=== PATIENT | male | born 1990 | race Asian ===

== ENCOUNTER 2022-01-05 08:20 | Emergency (ER) | payer OTHER ==
[~2022-01-05] VITALS: Ht 167.6 cm; Wt 85.0 kg
[2022-01-05 08:44] VITALS: BP 157/96
[2022-01-05 08:54] LABS: BASO % 1 % (0-3); EOS % 1 % (0-3); HEMATOCRIT 42.3 % (39.0-53.0); LYMPH # 1.1 x10^3/uL (1.0-4.8); LYMPH % 20 % (24-48); MEAN CORPUSCULAR HEMOGLOBIN 31 pg (25-35); MEAN CORPUSCULAR HGB CONC 33 g/dL (31-37); MEAN CORPUSCULAR VOLUME 93 fL (79-100); MONO # 0.4 x10^3/uL (0.0-1.1); MONO % 7 % (0-9); NEUT # 3.7 x10^3/uL (1.8-7.7); NEUT % 72 % (31-73); PLATELET COUNT 166 x10^3/uL (140-400); RED BLOOD COUNT 4.53 x10^6/uL (4.30-5.70); RED CELL DISTRIBUTION WIDTH 13.9 % (11.5-14.5); WHITE BLOOD COUNT 5.2 x10^3/uL (4.0-11.0)
[2022-01-05 08:57] LABS: CALCIUM 8.3 mg/dL (8.5-10.1); CREATININE 0.7 mg/dL (0.7-1.3); GFR 130.7
--- NOTE | 2022-01-05 09:26 | PHYS DOC ---
Past Medical History Past Surgical History: No Surgical History Adult General Chief Complaint Chief Complaint: NOSEBLEED HPI HPI Patient is a 31 year old male with a nosebleed that started about 3 in the morning. Patient states he woke up and blew his nose, he has not been able to control bleeding since. He does not have a history of trauma recently. He does not have history of coagulopathy and is not on any medications. Denies feeling lightheadedness, no syncopal episode. Review of Systems Review of Systems Constitutional: Denies fever Eyes: Denies change in visual acuity or eye pain HENT: Denies sore throat, bleeding from bilateral nares, worse on left. Respiratory: Denies shortness of breath Cardiovascular: Denies chest pain GI: Denies abd pain : Denies dysuria Musculoskeletal: Denies back or extremity injury Integument: Denies rash or skin lesions Neurologic: Denies headache, focal weakness or sensory changes All other systems were reviewed and found to be within normal limits, except as documented in this note. Current Medications Current Medications None Allergies Allergies Allergies Coded Allergies Type Severity Reaction Last Updated Verified No Known Drug Allergies 01/05/22 No Physical Exam Physical Exam Constitutional: Well developed, well nourished, no acute distress, non-toxic appearance. [] HENT: Normocephalic, atraumatic, bilateral external ears normal, oropharynx moist, no oral exudates, patient is bleeding from both nares, more briskly on the left side. On visual exploration unable to locate the actual site of bleeding. [] Eyes: PERRLA, EOMI, conjunctiva normal, no discharge. [] Neck: Normal range of motion, no tenderness, supple, no stridor. [] Cardiovascular:Heart rate regular rhythm, no murmur [] Lungs & Thorax: Bilateral breath sounds clear to auscultation [] Abdomen: Bowel sounds normal, soft, no tenderness, no masses, no pulsatile masses. [] Skin: Warm, dry, no erythema, no rash. [] Back: No tenderness, no CVA tenderness. [] Extremities: No tenderness, no cyanosis, no clubbing, ROM intact, no edema. [] Neurologic: Alert and oriented X 3, normal motor function, normal sensory function, no focal deficits noted. [] Psychologic: Affect normal, judgement normal, mood normal. [] Current Patient Data Vital Signs Vital Signs Date Time Temp Pulse Resp B/P (MAP) Pulse Ox O2 Delivery O2 Flow Rate FiO2 01/05/22 08:44 98.4 114 15 157/96 (116) 95 Room Air 98.4 Lab Values Laboratory Tests Test 01/05/22 08:06 White Blood Count 5.2 x10^3/uL (4.0-11.0) Red Blood Count 4.53 x10^6/uL (4.30-5.70) Hemoglobin 14.0 g/dL (13.0-17.5) Hematocrit 42.3 % (39.0-53.0) Mean Corpuscular Volume 93 fL (79-100) Mean Corpuscular Hemoglobin 31 pg (25-35) Mean Corpuscular Hemoglobin Concent 33 g/dL (31-37) Red Cell Distribution Width 13.9 % (11.5-14.5) Platelet Count 166 x10^3/uL (140-400) Neutrophils (%) (Auto) 72 % (31-73) Lymphocytes (%) (Auto) 20 % (24-48) L Monocytes (%) (Auto) 7 % (0-9) Eosinophils (%) (Auto) 1 % (0-3) Basophils (%) (Auto) 1 % (0-3) Neutrophils # (Auto) 3.7 x10^3/uL (1.8-7.7) Lymphocytes # (Auto) 1.1 x10^3/uL (1.0-4.8) Monocytes # (Auto) 0.4 x10^3/uL (0.0-1.1) Eosinophils # (Auto) 0.0 x10^3/uL (0.0-0.7) Basophils # (Auto) 0.0 x10^3/uL (0.0-0.2) Sodium Level 136 mmol/L (136-145) Potassium Level 4.0 mmol/L (3.5-5.1) Chloride Level 102 mmol/L (98-107) Carbon Dioxide Level 20 mmol/L (21-32) L Anion Gap 14 (6-14) Blood Urea Nitrogen 19 mg/dL (8-26) Creatinine 0.7 mg/dL (0.7-1.3) Estimated GFR (Cockcroft-Gault) 130.7 Glucose Level 152 mg/dL (70-99) H Calcium Level 8.3 mg/dL (8.5-10.1) L Laboratory Tests 01/05/22 08:06 Laboratory Tests 01/05/22 08:06 EKG EKG [] Radiology/Procedures Radiology/Procedures [] Course & Med Decision Making Course & Med Decision Making Pertinent Labs and Imaging studies reviewed. (See chart for details) [] This is a 31-year-old male with a nosebleed. Was not able to visualize where the bleeding was coming from. A left 5.5 cm Rhino Rocket was placed in the left nare without difficulty, balloon was inflated and the bleeding is stopped. We will discharge him on Keflex and have him follow-up in 3 days for removal of the Rhino Rocket, he is stable for discharge. Dragon Disclaimer Dragon Disclaimer This electronic medical record was generated, in whole or in part, using a voice recognition dictation system. Departure Departure Impression: Primary Impression: Epistaxis Disposition: HOME / SELF CARE / HOMELESS Condition: STABLE Referrals: NO PCP (PCP) VIANNEY SUÁREZ MD 3 days for nasal packing removal Patient Instructions: Nosebleed Additional Instructions: Follow-up in 3 days on January 08 for removal of nasal packing/Rhino Rocket. Scripts Cephalexin (KEFLEX) 500 Mg Capsule 2 CAP PO BID, #28 CAP Prov: MASSIEL SAMAYOA MD 01/05/22 MASSIEL SAMAYOA MD Jan 05, 2022 09:26
[2022-01-05 09:31] LABS: PROTHROMBIN TIME PATIENT 13.4 SEC (11.7-14.0)
[2022-01-05] MEDS ORDERED: CEPH500C PO (09:33)
== END 2022-01-05 09:54 | disposition home or self-care (01) ==
LOC: ER 08:20
DX: R04.0 Epistaxis (principal)
CPT/HCPCS: 30901; 36415; 80048; 85025; 85610; 85730; 99284